=== PATIENT | female | born 1950 | race Caucasian/White ===

== ENCOUNTER 2017-01-14 16:50 | Emergency (ER) | payer MEDICARE ==
[~2017-01-14] VITALS: Ht 170.2 cm; Wt 66.0 kg
[2017-01-14 16:53] VITALS: BP 130/66; PULSE 84; RESP 20; TEMP 98; O2SAT 100
[2017-01-14 17:08] VITALS: BP 145/65; PULSE 99; RESP 28; O2SAT 100
[2017-01-14] MEDS ORDERED: LORazepam 2 MG/ML VIAL IV PUSH ONE (17:15)
[2017-01-14] MEDS ORDERED: SODIUM CHLORIDE 0.9% FLUSH 10 ML FLUSH IV FLUSH PRN (17:15)
[2017-01-14] MEDS ORDERED: SODIUM CHLOR 0.9% 1000 ML INJ 1,000 ML IV ONE ×2 (17:15→19:00)
[2017-01-14 17:45] LABS: AUTOMATED NEUTROPHIL # 17.4 TH/MM3 (1.8-7.7); BASOPHIL # 0.1 TH/MM3 (0-0.2); BASOPHIL % 0.5 % (0.0-2.0); HEMATOCRIT 40.8 % (35.0-46.0); HEMO FLAGS DIFF FINAL; LYMPH % 6.6 % (9.0-44.0); LYMPHOCYTE # 1.3 TH/MM3 (1.0-4.8); MEAN CELL VOLUME 86.5 FL (80.0-100.0); MEAN CORPUSCULAR HEMOGLOBIN 29.9 PG (27.0-34.0); MEAN CORPUSCULAR HGB CONC 34.5 % (32.0-36.0); NEUT % 86.9 % (16.0-70.0); PLATELET COUNT 264 TH/MM3 (150-450); RED BLOOD COUNT 4.72 MIL/MM3 (4.00-5.30); RED CELL DISTRIBUTION WIDTH 13.4 % (11.6-17.2); WHITE BLOOD COUNT 20.1 TH/MM3 (4.0-11.0)
[2017-01-14 17:52] LABS: PROTHROMBIN TIME - PATIENT 10.9 SEC (9.8-11.6)
[2017-01-14 18:02] LABS: ALKALINE PHOSPHATASE 119 U/L (45-117); TOTAL BILIRUBIN ADULT 1.1 MG/DL (0.2-1.0)
[2017-01-14 18:09] LABS: ALT (GPT) 28 U/L (10-53); ANION GAP 12 MEQ/L (5-15); AST (GOT) 40 U/L (15-37); BICARBONATE 19.9 MEQ/L (21.0-32.0); BLOOD UREA NITROGEN 18 MG/DL (7-18); CHLORIDE 102 MEQ/L (98-107); GLOMERULAR FILTRATION RATE 42 ML/MIN (>89); SODIUM (NA) 134 MEQ/L (136-145)
[2017-01-14 18:13] LABS: POTASSIUM 4.4 MEQ/L (3.5-5.1)
--- NOTE | 2017-01-14 19:23 | RADRPT ---
EXAM DATE/TIME: 01/14/2017 19:01 [facility] COMPARISON: No previous studies available for comparison. INDICATIONS : Syncope. RADIATION DOSE: 47.12 CTDIvol (mGy) MEDICAL HISTORY : Carcinoma, breast. SURGICAL HISTORY : None. ENCOUNTER: Initial ACUITY: 1 day PAIN SCALE: 0/10 LOCATION: cranial TECHNIQUE: Multiple contiguous axial images were obtained of the head. Using automated exposure control and adj ustment of the mA and/or kV according to patient size, radiation dose was kept as low as reasonably a chievable to obtain optimal diagnostic quality images. DICOM format image data is available electro nically for review and comparison. FINDINGS: CEREBRUM: The ventricles are normal for age. No evidence of midline shift, mass lesion, hemorrhage or acute in farction. No extra-axial fluid collections are seen. POSTERIOR FOSSA: The cerebellum and brainstem are intact. The 4th ventricle is midline. The cerebellopontine angle i s unremarkable. EXTRACRANIAL: The visualized portion of the orbits is intact. SKULL: The calvaria is intact. No evidence of skull fracture. CONCLUSION: Normal examination for a patient of this age. Smith Butler MD on January 14, 2017 at 19:20 Board Certified Radiologist. This report was verified electronically.
--- NOTE | 2017-01-14 19:28 | RADRPT ---
EXAM DATE/TIME: 01/14/2017 19:07 [facility] COMPARISON: No previous studies available for comparison. INDICATIONS : Lower abdominal pain. Hematuria. ORAL CONTRAST: No oral contrast ingested. RADIATION DOSE: 8.10 CTDIvol (mGy) MEDICAL HISTORY : Carcinoma, breast. SURGICAL HISTORY : Mastectomy, left. ENCOUNTER: Initial ACUITY: 1 day PAIN SCALE: 7/10 LOCATION: Bilateral lower quadrant TECHNIQUE: Volumetric scanning of the abdomen and pelvis was performed. Using automated exposure control and ad justment of the mA and/or kV according to patient size, radiation dose was kept as low as reasonably achievable to obtain optimal diagnostic quality images. DICOM format image data is available electro nically for review and comparison. FINDINGS: Postoperative left mastectomy. Mild basilar atelectasis. Small hiatal hernia. No acute findings in the liver, spleen, adrenals, pancreas or gallbladder. Tiny nonobstructing bilate ral renal calcifications measuring up to about 2 mm on the left. No hydronephrosis or evidence for ob structive uropathy. No bladder calculi. No pelvic masses. Previous hysterectomy. No acute bony abnorm alities. Moderate degenerative change in the spine. CONCLUSION: 1. Tiny nonobstructing renal calcifications. No hydronephrosis. 2. Small hiatal hernia. 3. Postoperative mastectomy and hysterectomy. Smith Butler MD on January 14, 2017 at 19:21 Board Certified Radiologist. This report was verified electronically.
[2017-01-14 19:50] LABS: BACTERIA, URINE OCC /hpf; BLOOD, URINE LARGE (NEG); COMMENT (UR) CULTURE INDICATED; CULTURE IF INDICATED CULTURE INDICATED; GLUCOSE,URINE NEG (NEG); KETONE, URINE 10 mg/dL (NEG); NITRITE,URINE NEG (NEG); SQUAMOUS EPITHELIAL CELL URINE <1 /hpf (0-5); URINE COLOR YELLOW (YELLW/STRAW)
[2017-01-14] MEDS ORDERED: cefTRIAXone INJ 1,000 MG in SODIUM CHLORIDE 0.9% INJ 100 ML IV ONE (20:00)
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
[2017-01-14] MEDS ORDERED: LIDOCAINE HCL 1% 50 ML VIAL IM ONE (20:15)
[2017-01-14] MEDS ORDERED: MACR100C2 PO (20:31)
--- NOTE | 2017-01-15 12:53 | EKG ---
Date Performed: 01/14/2017 Time Performed: 17:42:25 PTAGE: 66 years EKG: Sinus rhythm MARKED LEFT AXIS DEVIATION INTRAVENTRICULAR CONDUCTION DELAY ABNORMAL ECG NO PREVIOUS TRACING DOCTOR: Rodríguez Blum Interpretating Date/Time 01/15/2017 12:48:11
== END 2017-01-14 22:38 | disposition home or self-care (01) ==
LOC: NEPD 16:50
DX: N30.80 Other cystitis without hematuria (principal); D72.829 Elevated white blood cell count, unspecified; F41.0 Panic disorder [episodic paroxysmal anxiety]; N28.9 Disorder of kidney and ureter, unspecified; Z79.899 Other long term (current) drug therapy
CPT/HCPCS: 70450; 74176; 80053; 81001; 85025; 85610; 87040; 87086; 93005; 96361; 96372; 96374; 99285; J0696; J2060; J7030